=== PATIENT | female | born 1970 | race Caucasian/White ===

== ENCOUNTER 2016-11-11 12:12 | Observation (INO) | payer OTHER ==
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
[2016-11-11 12:48] LABS: COLOR YELLOW; LEUKOCYTE ESTERASE,URINE NEGATIVE (NEGATIVE); NITRITE,URINE NEGATIVE (NEGATIVE)
[2016-11-11 12:52] LABS: BACTERIA 1+ /hpf (NONE SEEN); MUCUS 1+ /lpf (NONE-1+)
[2016-11-11] MEDS ORDERED: ONDANSETRON 4 MG/2 ML VIAL IVP ONE (12:58)
[2016-11-11] MEDS ORDERED: HYDROmorphONE/DILAUDID 1 MG/ML SYR IVP ONE (12:58)
[2016-11-11] MEDS ORDERED: NS 1,000 ML IV ONE ×2 (12:58)
[2016-11-11 13:10] LABS: % IMMATURE GRANULYOCYTES 0.3 % (0.0-1.1); ABSOLUTE IMMATURE GRANULOCYTES 0.03 10^3/uL (0.00-0.10); ADD DIFF? NO; ADD MORPH? NO; ADD SCAN? NO; ATYPICAL LYMPHOCYTE FLAG 0 (0-99); FRAGMENT RBC FLAG 0 (0-99); HEMATOCRIT 40.2 % (38.0-47.0); HEMOGLOBIN 13.7 g/dL (12.6-16.3); LEFT SHIFT FLG 0 (0-99); LIPEMIA HEMOLYSIS FLAG 90 (0-99); MEAN CELL HEMOGLOBIN 28.9 pg (27.9-34.1); MEAN CELL HEMOGLOBIN CONCENTR. 34.1 g/dL (32.4-36.7); MEAN CELL VOLUME 84.8 fL (81.5-99.8); MEAN PLATELET VOLUME 9.7 fL (8.7-11.7); PLATELET CLUMPS FLAG 0 (0-99); PLATELET COUNT 239 10^3/uL (150-400); RED BLOOD CELL COUNT 4.74 10^6/uL (4.18-5.33); RED CELL DISTRIBUTION WIDTH 12.7 % (11.5-15.2)
[2016-11-11 13:27] LABS: ALANINE AMINOTRANSFERASE 33 IU/L (9-52); ALBUMIN 4.1 g/dL (3.5-5.0); ALKALINE PHOSPHATASE 82 IU/L (38-126); ANION GAP 12 mEq/L (8-16); ASPARTATE AMINOTRANSFERASE 17 IU/L (14-46); BILIRUBIN,TOTAL 0.8 mg/dL (0.1-1.4); BILIRUBIN-CONJUGATED 0.3 mg/dL (0.0-0.5); BILIRUBIN-UNCONJUGATED 0.5 mg/dL (0.0-1.1); CALCIUM 9.5 mg/dL (8.5-10.4); CARBON DIOXIDE 21 mEq/l (22-31); CHLORIDE 106 mEq/L (97-110); CREATININE 0.5 mg/dL (0.6-1.0); GLOMERULAR FILTRATION RATE > 60; GLUCOSE 87 mg/dL (70-100); POTASSIUM 4.1 mEq/L (3.5-5.2); SODIUM 139 mEq/L (134-144); TOTAL PROTEIN 7.3 g/dL (6.3-8.2)
[2016-11-11] MEDS ORDERED: IOPAMIDOL (ISOVUE-300) 100 ML BTL IV ONE (13:47)
[2016-11-11] MEDS ORDERED: ERTAPENEM 1 GM in NS 100 ML IV ONE (14:25)
[2016-11-11] MEDS ORDERED: BUPIVACAINE/EPI 0.25% 30 ML SDV ONE (15:36)
[2016-11-11] MEDS ORDERED: SKIN ADHESIVE (DERMABOND) 1 EACH TP ONE (15:36)
--- NOTE | 2016-11-11 16:04 | GHP ---
[f rep st] PREOP HISTORY AND PHYSICAL DATE OF ADMISSION: 11/11/2016 CHIEF COMPLAINT: Abdominal pain. HISTORY OF PRESENT ILLNESS: This is a 46-year-old female who [facility]. The pain began last evening and progressed through the night to this morning where it was initially periumbilical, now right lower quadrant. Fairly excru ciating, associated with nausea, without vomiting. She does endorse chills without fever. The pain she describes is a sharp pain in the right lower quadrant without radiation, 8/10 at worst intensit y. She does endorse having chronic abdominal pain after what appears to be a food poisoning inciden t and this is clearly a different pain. PAST MEDICAL HISTORY: Chronic diarrhea and abdominal pain. PAST SURGICAL HISTORY: Open hysterectomy. CURRENT MEDICATIONS: None. ALLERGIES: None. REVIEW OF SYSTEMS: A full 10-point review was performed and unless explicitly stated above, is othe rwise negative. PHYSICAL EXAMINATION: VITAL SIGNS: Temperature 36.7, blood pressure 129/74, heart rate 83, and she is 96% on room air. GENERAL: She is alert and oriented, in no acute distress. CV: She has a reg ular rate and rhythm. LUNGS: Clear to auscultation bilaterally. ABDOMEN: Soft, nondistended. Te nder to palpation in the right lower quadrant with rebound tenderness. Well-healed Pfannenstiel sca r. EXTREMITIES: Warm and well perfused. LABORATORY: White blood cell count normal at 9; however, she does have a left shift. Hemoglobin an d hematocrit stable. CT scan of the abdomen and pelvis shows acute nonperforated appendicitis. ASSESSMENT AND PLAN: A 46-year-old female with acute, nonperforated appendicitis. I discussed the risks, benefits, and alternatives of surgery with her and she wishes to proceed. We will plan to go to the operating room as time permits for a laparoscopic appendectomy. She will remain n.p.o. and r eceive IV antibiotics. /[id number]/MODL
[2016-11-11] MEDS ORDERED: MIDAZOLAM 2 MG/2 ML VIAL ONE (16:12)
[2016-11-11] MEDS ORDERED: PROPOFOL 200 MG/20 ML VIAL ONE ×2 (16:13)
[2016-11-11] MEDS ORDERED: fentaNYL 100 MCG/2 ML INJ ONE ×2 (16:14→17:38)
[2016-11-11] MEDS ORDERED: ROCURONIUM 50 MG/5 ML VIAL ONE (16:16)
[2016-11-11] MEDS ORDERED: LIDOCAINE 2% 100 MG/5 ML SYR ONE (16:16)
[2016-11-11] MEDS ORDERED: ONDANSETRON 4 MG/2 ML VIAL IVP PRN (17:21)
--- NOTE | 2016-11-11 17:24 | POSTOPPROG ---
Post Op Note Date of Operation: 11/11/16 Surgeon: Gordon Shavre Anesthesiologist: Bonita Anesthesia: GET(General Endotracheal) Pre-op Diagnosis: appendicitis Post-op Diagnosis: same Procedure: Lap appy Findings: acute induration, no perforation Inf/Abcess present in the surg proc area at time of surgery?: No EBL: Minimal Specimen(s): appendix
[2016-11-11] MEDS ORDERED: D5W 1/2 NS W/ 20 KCl/L 1,000 ML IV SCH (17:30)
[2016-11-11] MEDS ORDERED: HYDROmorphONE/DILAUDID 2 MG/ML INJ ONE (18:14)
--- NOTE | 2016-11-11 18:39 | GOP ---
[f rep st] OPERATIVE REPORT DATE OF OPERATION: 11/11/2016 SURGEON: Gordon Shaver MD CARGO AND CONTAINER INSPECTOR: None. ANESTHESIA: General endotracheal per Dr. Mesa. PREOPERATIVE DIAGNOSIS: Appendicitis. POSTOPERATIVE DIAGNOSIS: Appendicitis. PROCEDURE PERFORMED: Laparoscopic appendectomy. FINDINGS: Acutely indurated, non-perforated appendix. SPECIMENS: Appendix. ESTIMATED BLOOD LOSS: 5 cc. DESCRIPTION OF PROCEDURE: The patient was greeted in the preoperative suite. Once again, risks, be nefits, and alternatives were discussed. Consent was signed. She was then brought back to the oper ative suite, placed on the OR table in the supine position. After all anesthesia machines, includin g SCDs, were on and functioning, World Health Organization time-out was performed. General endotrac heal anesthesia was then induced without incident. The patient's abdomen was then widely prepped an d draped in typical sterile fashion. I entered the abdomen using the Veress needle in the left uppe r quadrant and successfully achieved pneumoperitoneum to 15 mmHg CO2, which was well tolerated by th e patient. After this, I entered the abdomen using a 12 mm Visiport in an infraumbilical fashion. Once successfully in the abdomen, I placed two 5 mm Visiports under direct visualization: One in th e suprapubic area, the other in the left lower quadrant, all under direct visualization. Once this was done, I used blunt dissection to identify the appendix by tracing the taeniae inferiorly. It wa s acutely indurated and stuck to the retroperitoneum at that site. I bluntly dissected it off the r etroperitoneum and created a window at the base of the appendix. Through this window, using a singl e fire of the blue Endo BOYD stapler, I successfully amputated the appendix from the cecal base. Aft er this was done, using 2 additional fires of now white load stapler, amputated the appendix from th e mesoappendix and removed it via an EndoCatch bag. Hemostasis was noted to be good at both staple lines. I did irrigate the right lower quadrant with warm normal saline, noting clear effluent in th e suction canister. I then infiltrated all port sites with local anesthetic. I then removed the po rts and evacuated the pneumoperitoneum without issue. My infraumbilical site was then closed with a [id number] 0 Vicryl stitch, noting excellent fascial reapproximation. The patient was then ex tubated in the operative suite and taken to the PACU in satisfactory condition. COUNTS: All counts were reported as correct x2. Please note that I did close all skin with running 4-0 Monocryl over which Dermabond was placed. /[id number]/MODL
[2016-11-11 20:26] VITALS: RESP 16
[2016-11-11] MEDS: OXYCODONE/APAP 5/325 TAB PO PRN (20:47)
[2016-11-11] MEDS: HYDROmorphONE/DILAUDID 1 MG/ML SYR IVP PRN ×2 (21:30→23:29)
[2016-11-12] MEDS: OXYCODONE/APAP 5/325 TAB PO PRN ×5 (00:49→13:20)
[2016-11-12] MEDS: HYDROmorphONE/DILAUDID 1 MG/ML SYR IVP PRN (03:21)
[2016-11-12 08:39] VITALS: BP 112/70; PULSE 54; TEMP 97.7; O2SAT 98
--- NOTE | 2016-11-12 09:46 | GDS ---
[f rep st] DISCHARGE SUMMARY DISCHARGE DIAGNOSIS: Acute appendicitis. HOSPITAL COURSE: The patient was admitted from the Emergency Department, taken to the operating lanre m for uneventful laparoscopic appendectomy. She was then transferred to the floor. Her diet was ad vanced to a regular diet, which was well tolerated on the day of discharge. DISCHARGE MEDICATIONS: New medication: Percocet 5/325 as needed for pain. All home medications re started. DISPOSITION: Home. Follow up 10-14 days with me in the office. /[id number]/MODL
== END 2016-11-12 14:15 | disposition home or self-care (01) ==
LOC: FOB 20:32
PROVIDERS: ADMIT Surgery; ATTEND Surgery
PROC: 0DTJ4ZZ Resection of Appendix, Percutaneous Endoscopic Approach (ICD-10-PCS; principal; 2016-11-11 15:45)
DX: K35.80 Unspecified acute appendicitis (principal)
CPT/HCPCS: 44970; 74177; G0378; 82947-QW; 96365; J1170; J1335; J2001; J2250; J2405; J2704; J3010; Q9967

== ENCOUNTER 2016-11-13 18:26 | Emergency (ER) | payer OTHER ==
[2016-11-13 18:35] VITALS: RESP 18; TEMP 97.9
--- NOTE | 2016-11-13 18:39 | EDPHY ---
HPI/HX/ROS/PE/MDM Narrative: CHIEF COMPLAINT: Facial itching, chest pain, shortness of breath, abdominal pain. HPI: The patient is a 46-year-old female status post appendectomy 2 days ago who presents with facial itching, chest burning, abdominal pain, and shortness of breath. She describes feeling gassy and bloated with worse heartburn than usual. She reports stabbing pain throughout her abdomen. She has had mild diarrhea and nausea. She denies fever, vomiting. She has been taking Percocet for the pain. REVIEW OF SYSTEMS: Aside from elements discussed in the HPI, a comprehensive 10-point review of systems was reviewed and is negative. PMH: Partial hysterectomy, appendectomy. SOCIAL HISTORY: Former smoker. PHYSICAL EXAM: General: Patient is alert, in no acute distress. ENT: Eyes are normal to inspection. ENT inspection normal. Neck: Normal inspection. Full range of motion. Respiratory: No respiratory distress. Breath sounds normal bilaterally. Cardiovascular: Regular rate and rhythm. Strong peripheral pulses. Abdomen: The abdomen is nontender to palpation. There are no peritoneal signs. There are normal bowel sounds. Bruising around well-healed laparoscopic surgical scars. Back: Normal to inspection. No tenderness to palpation. Skin: Normal color. No rash. Warm and dry. Extremities: Normal appearance. Full range of motion. Neuro: Oriented x3. Normal motor function. Normal sensory function. Portions of this note were transcribed by an ED scribe. I personally performed the history, physical exam, and medical decision making; and confirm the accuracy of the information in the transcribed note. ED Course: An IV was established and labs ordered. Chest x-ray obtained. Study: PA and Lateral Chest X-ray Indication: SOB, chest burning. Results: I viewed the images myself on the PACS system. The radiologist interpretation is: Poor inspiration. Otherwise, normal chest x-ray. Study: Abdomen X-ray Indication: SOB, chest burning, recent appendectomy. Results: I viewed the images myself on the PACS system. The radiologist interpretation is: Normal upright abdomen. MDM: This patient is post-op from a laparoscopic appendectomy and has several complaints that seem most likely attributable to normal post-operative symptoms - namely a feeling of abdominal distention with some dyspnea associated, as well as heartburn. She also complains of facial itching associated with taking Percocet. Her exam is very reassuring, she is afebrile, and her WBC as well as other tests are normal. CXR rules out pneumonia, and bowel obstruction, bowel perforation are unlikely. On re-evaluation at 8pm, I explained results to patient and recommended we add additional cardiac labs as well as possible CT of the abdomen to rule out post-op complication. She declines additional testing and will try [id number] medications tonight. We discussed strict return precautions. - Data Points Laboratory Results: Laboratory Results 11/13/16 18:55 11/13/16 18:55 11/13/16 11/13/16 18:55 18:55 WBC 7.38 10^3/uL 10^3/uL (3.80-9.50) RBC 4.11 10^6/uL L 10^6/uL (4.18-5.33) Hgb 12.1 g/dL L g/dL (12.6-16.3) Hct 36.8 % L % (38.0-47.0) MCV 89.5 fL fL (81.5-99.8) MCH 29.4 pg pg (27.9-34.1) MCHC 32.9 g/dL g/dL (32.4-36.7) RDW 13.0 % % (11.5-15.2) Plt Count 236 10^3/uL 10^3/uL (150-400) MPV 9.9 fL fL (8.7-11.7) Neut % (Auto) 58.4 % % (39.3-74.2) Lymph % (Auto) 30.5 % % (15.0-45.0) [place] % (Auto) 7.3 % % (4.5-13.0) Eos % (Auto) 3.1 % % (0.6-7.6) Baso % (Auto) 0.4 % % (0.3-1.7) Nucleat RBC Rel Count 0.0 % % (0.0-0.2) Absolute Neuts (auto) 4.31 10^3/uL 10^3/uL (1.70-6.50) Absolute Lymphs (auto) 2.25 10^3/uL 10^3/uL (1.00-3.00) Absolute Monos (auto) 0.54 10^3/uL 10^3/uL (0.30-0.80) Absolute Eos (auto) 0.23 10^3/uL 10^3/uL (0.03-0.40) Absolute Basos (auto) 0.03 10^3/uL 10^3/uL (0.02-0.10) Absolute Nucleated RBC 0.00 10^3/uL 10^3/uL (0-0.01) Immature Gran % 0.3 % % (0.0-1.1) Immature Gran # 0.02 10^3/uL 10^3/uL (0.00-0.10) Sodium 143 mEq/L mEq/L (134-144) Potassium 4.3 mEq/L mEq/L (3.5-5.2) Chloride 108 mEq/L mEq/L (97-110) Carbon Dioxide 26 mEq/l mEq/l (22-31) Anion Gap 9 mEq/L mEq/L (8-16) BUN 17 mg/dL mg/dL (7-23) Creatinine 0.7 mg/dL mg/dL (0.6-1.0) Estimated GFR > 60 Glucose 112 mg/dL H mg/dL (70-100) Calcium 9.0 mg/dL mg/dL (8.5-10.4) General Time Seen by Provider: 11/13/16 18:37 Initial Vital Signs: Initial Vital Signs Temperature (C) 36.6 C 11/13/16 18:29 Heart Rate 82 11/13/16 18:29 Respiratory Rate 18 11/13/16 18:29 Blood Pressure 133/82 H 11/13/16 18:29 O2 Sat (%) 94 11/13/16 18:29 O2 Delivery Mode Room Air Allergies/Adverse Reactions: No Known Allergies Allergy (Unverified 11/11/16 12:27) Home Medications: Medication Instructions Recorded ALPRAZolam [Xanax 0.25 MG (*)] 0.25 - 0.5 mg PO AD PRN 11/11/16 Cholecalciferol Vit D3 [Vitamin D3 10,000 units PO MOTUWETHFR 11/11/16 2000 units tab (OTC)] Dicyclomine [Bentyl 10 MG (*)] 10 mg PO DAILY PRN 11/11/16 Ibuprofen [Motrin (*)] 800 mg PO DAILY PRN 11/11/16 tiZANidine HCL [Zanaflex 2MG (*)] 2 - 4 mg PO DAILY PRN 11/11/16 oxyCODONE/APAP 5/325 [Percocet 1 - 2 tab PO Q4HRS PRN #30 tab 11/12/16 5/325 (*)] Departure - Departure Disposition: Home, Routine, Self-Care Clinical Impression: Post-op pain, Bloating Dyspnea Qualifiers: Dyspnea type: unspecified Qualified Code(s): R06.00 - Dyspnea, unspecified Condition: Good Instructions: Gas and Bloating (ED), Dyspnea (ED) Additional Instructions: Follow-up with your primary doctor and surgeon within 24-48 hours. Return to the ED for fever, worsening abdominal pain, chest pain, shortness of breath or other concerns. Referrals: Ashli Lopez MD [Primary Care Provider] - As per Instructions Report Scribed for: Dwayne Waterman Report Scribed by: Kai Dawson Date of Report: 11/13/16 Time of Report: 18:48
[2016-11-13 19:08] LABS: % IMMATURE GRANULYOCYTES 0.3 % (0.0-1.1); ABSOLUTE IMMATURE GRANULOCYTES 0.02 10^3/uL (0.00-0.10); ADD DIFF? NO; ADD MORPH? NO; ADD SCAN? NO; ATYPICAL LYMPHOCYTE FLAG 0 (0-99); FRAGMENT RBC FLAG 0 (0-99); HEMATOCRIT 36.8 % (38.0-47.0); HEMOGLOBIN 12.1 g/dL (12.6-16.3); LEFT SHIFT FLG 0 (0-99); LIPEMIA HEMOLYSIS FLAG 80 (0-99); MEAN CELL HEMOGLOBIN 29.4 pg (27.9-34.1); MEAN CELL HEMOGLOBIN CONCENTR. 32.9 g/dL (32.4-36.7); MEAN CELL VOLUME 89.5 fL (81.5-99.8); MEAN PLATELET VOLUME 9.9 fL (8.7-11.7); PLATELET CLUMPS FLAG 20 (0-99); PLATELET COUNT 236 10^3/uL (150-400); RED BLOOD CELL COUNT 4.11 10^6/uL (4.18-5.33)
[2016-11-13 19:19] LABS: ANION GAP 9 mEq/L (8-16); CARBON DIOXIDE 26 mEq/l (22-31); CHLORIDE 108 mEq/L (97-110); CREATININE 0.7 mg/dL (0.6-1.0); GLOMERULAR FILTRATION RATE > 60; GLUCOSE 112 mg/dL (70-100); POTASSIUM 4.3 mEq/L (3.5-5.2); SODIUM 143 mEq/L (134-144)
--- NOTE | 2016-11-13 19:54 | CPEKG ---
Heart Rate: 74 RR Interval: 811 P-R Interval: 140 QRSD Interval: 78 QT Interval: 368 QTC Interval: 409 P [place]: 5 QRS [place]: -6 T Wave [place]: -11 EKG Severity - ABNORMAL ECG - EKG Impression: SINUS RHYTHM EKG Impression: PROBABLE INFERIOR INFARCT, AGE INDETERMINATE EKG Impression: NONSPECIFIC T ABNORMALITIES, ANTERIOR LEADS EKG Impression: Agree with above Electronically Signed By: Ruddy Villafuerte 15-Nov-2016 18:38:46
[2016-11-13 20:28] VITALS: BP 126/84; PULSE 76; O2SAT 92
== END 2016-11-13 20:28 | disposition home or self-care (01) ==
DX: G89.18 Other acute postprocedural pain (principal); R14.0 Abdominal distension (gaseous); R06.00 Dyspnea, unspecified; Z90.49 Acquired absence of other specified parts of digestive tract; Z87.891 Personal history of nicotine dependence

== ENCOUNTER 2016-12-05 16:46 | Emergency (ER) | payer OTHER ==
[2016-12-05 16:58] VITALS: O2SAT 95
--- NOTE | 2016-12-05 17:28 | EDPHY ---
H & P Stated Complaint: appendix removed 11/11 increased abd/back - Personal History LMP (Females 10-55): Hysterectomy Current Tetanus Diphtheria and Acellular Pertussis (TDAP): Yes - Medical/Surgical History Hx Asthma: No Hx Chronic Respiratory Disease: No Hx Diabetes: No Hx Cardiac Disease: No Hx Renal Disease: No Hx Cirrhosis: No Hx Alcoholism: No Hx HIV/AIDS: No Hx Splenectomy or Spleen Trauma: No Other PMH: partial hyst (has L ovary). Appendectomy 11/11/16 - Social History Smoking Status: Former smoker Time Seen by Provider: 12/05/16 17:13 HPI/ROS: CHIEF COMPLAINT: 3 days right upper quadrant and right lower quadrant abdominal pain HISTORY OF PRESENT ILLNESS: 46-year-old female history of H pylori, appendectomy, hysterectomy, left oophorectomy, complaining of 3 days of right upper quadrant, right lower quadrant and right lower back pain with no nausea or vomiting. Continued diarrhea without melena or hematochezia. No rash. No fever or chills. The patient was scheduled to take a trip 2 day and had to get off of airplane secondary to pain. Last oral intake was at 3:00 p.m. consisting of Tamaz[employer] fries PRIMARY CARE PROVIDER:Dr. Lisette Slaughter, Dr. Gordon Shaver REVIEW OF SYSTEMS: A ten point review of systems was performed and is negative with the exception of the items mentioned in the HPI PAST MEDICAL & SURGICAL HISTORY: appendectomy. Hysterectomy. Left oophorectomy. H pylori. SOCIAL HISTORY: nonsmoker PHYSICAL EXAM (Prior to examination, patient consented to physical exam, hands were washed and my usual and customary physical exam procedures followed) 1) GENERAL: Well-developed, well-nourished, alert and oriented. Appears to be in no acute distress. 2) HEAD: Normocephalic, atraumatic 3) HEENT: Pupils equal, round, reactive to light bilaterally. Sclera anicteric. Nasopharynx, oropharynx, clear, no lesions. Ears bilaterally with normal tympanic membranes. 4) NECK: Full range of motion, no meningeal signs. 5) LUNGS: Clear auscultation bilaterally, no wheezes, no rhonchi, no retractions. 6) HEART: Regular rate and rhythm, no murmur, no heave, no gallop. 7) ABDOMEN: No guarding, Tender to palpation right lower and right upper quadrant positive De Oliveira's, positive McBurney's point pain, negative De Oliveira's, negative Rovsing's, negative peritoneal sign, 8) MUSCULOSKELETAL: Moving all extremities, no focal areas of tenderness, no obvious trauma. No peripheral edema or discoloration. 9) BACK: No CVA tenderness, no midline vertebral tenderness, no fluctuance, no step-off, no obvious trauma, no visual or palpable abnormality. 10) SKIN: No rash, no petechiae. 11) Psychiatric: Patient is oriented X 3, there is no agitation. DIFFERENTIAL DIAGNOSIS: My differential diagnosis includes, but is not limited to, acute appendicitis, acute cholecystitis, bowel obstruction, acute pancreatitis, ovarian torsion, ectopic , gastritis and urinary tract infection. The patient understands that this diagnosis is provisional and can never be 100% accurate. This is a partial list of diagnoses considered. These considerations are based on history, physical exam, past history and reassessment. (Juvenal Chan) Constitutional: Initial Vital Signs Temperature (C) 36.6 C 12/05/16 16:54 Heart Rate 84 12/05/16 16:54 Respiratory Rate 16 12/05/16 16:54 Blood Pressure 115/94 H 12/05/16 16:54 O2 Sat (%) 95 12/05/16 16:54 O2 Delivery Mode Room Air Allergies/Adverse Reactions: No Known Allergies Allergy (Unverified 11/11/16 12:27) Home Medications: Medication Instructions Recorded ALPRAZolam [Xanax 0.25 MG (*)] 0.25 - 0.5 mg PO AD PRN 11/11/16 Cholecalciferol Vit D3 [Vitamin D3 10,000 units PO MOTUWETHFR 11/11/16 2000 units tab (OTC)] Dicyclomine [Bentyl 10 MG (*)] 10 mg PO DAILY PRN 11/11/16 Ibuprofen [Motrin (*)] 800 mg PO DAILY PRN 11/11/16 tiZANidine HCL [Zanaflex 2MG (*)] 2 - 4 mg PO DAILY PRN 11/11/16 oxyCODONE/APAP 5/325 [Percocet 1 - 2 tab PO Q4HRS PRN #30 tab 11/12/16 5/325 (*)] Amoxicillin 12/05/16 Hydrocodone/APAP 5/325 [[place] 1 tab PO Q6 PRN #10 tab 12/05/16 5/325 (RX)] Medical Decision Making - Diagnostics Imaging Results: Imaging Impressions Abdomen Ultrasound 12/05/16 17:26 Impression: 1. No evidence of gallstones. 2. Mild hepatic steatosis. Cyst left lobe liver lateral segment was not imaged on today's exam. 3. Incidental 12 mm cyst upper pole as well as lower pole right kidney. Pelvic/Renal Ultrasound 12/05/16 17:26 Impression: 1. Previous hysterectomy and left oophorectomy. 2. Complex right ovary with heterogeneous slightly increased echogenicity component centrally that could represent hemorrhagic cyst. A mass is felt to be less likely. Reviewing the prior recent CT study revealed cysts associated with the right ovary but no mass. Findings were discussed by telephone with Dwayne Chan PA-C at 1917 hrs. Images reviewed by myself (Juvenal Chan) ED Course/Re-evaluation: Patient's re-evaluated serial exams was recently at 7:50 p.m.. Her pain is controlled. Discussed her imaging results. She has an old right ovarian hemorrhagic cyst. I think that acute surgical abdominal pathology such as bowel obstruction less than likely. She has prior history of appendectomy. Think the patient can be discharged with analgesia and follow-up with OBGYN. Usual customary abdominal precautions instructions provided. (Juvenal Chan) I did not see this patient while she was in the emergency department. However her care was discussed with the PA while the patient was in the department. I agree with treatment plan and management (Ruddy Siu) - Data Points Laboratory Results: Laboratory Results 12/05/16 18:05 12/05/16 18:05 12/05/16 12/05/16 12/05/16 18:05 18:05 18:05 WBC 7.60 10^3/uL 10^3/uL (3.80-9.50) RBC 4.74 10^6/uL 10^6/uL (4.18-5.33) Hgb 13.9 g/dL g/dL (12.6-16.3) Hct 40.9 % % (38.0-47.0) MCV 86.3 fL fL (81.5-99.8) MCH 29.3 pg pg (27.9-34.1) MCHC 34.0 g/dL g/dL (32.4-36.7) RDW 12.6 % % (11.5-15.2) Plt Count 259 10^3/uL 10^3/uL (150-400) MPV 10.1 fL fL (8.7-11.7) Neut % (Auto) 64.3 % % (39.3-74.2) Lymph % (Auto) 25.5 % % (15.0-45.0) [place] % (Auto) 6.2 % % (4.5-13.0) Eos % (Auto) 3.0 % % (0.6-7.6) Baso % (Auto) 0.7 % % (0.3-1.7) Nucleat RBC Rel Count 0.0 % % (0.0-0.2) Absolute Neuts (auto) 4.89 10^3/uL 10^3/uL (1.70-6.50) Absolute Lymphs (auto) 1.94 10^3/uL 10^3/uL (1.00-3.00) Absolute Monos (auto) 0.47 10^3/uL 10^3/uL (0.30-0.80) Absolute Eos (auto) 0.23 10^3/uL 10^3/uL (0.03-0.40) Absolute Basos (auto) 0.05 10^3/uL 10^3/uL (0.02-0.10) Absolute Nucleated RBC 0.00 10^3/uL 10^3/uL (0-0.01) Immature Gran % 0.3 % % (0.0-1.1) Immature Gran # 0.02 10^3/uL 10^3/uL (0.00-0.10) Sodium 139 mEq/L mEq/L (134-144) Potassium 4.2 mEq/L mEq/L (3.5-5.2) Chloride 107 mEq/L mEq/L (97-110) Carbon Dioxide 24 mEq/l mEq/l (22-31) Anion Gap 8 mEq/L mEq/L (8-16) BUN 10 mg/dL mg/dL (7-23) Creatinine 0.6 mg/dL mg/dL (0.6-1.0) Estimated GFR > 60 Glucose 106 mg/dL H mg/dL (70-100) Calcium 9.6 mg/dL mg/dL (8.5-10.4) Total Bilirubin 0.6 mg/dL mg/dL (0.1-1.4) Conjugated Bilirubin 0.4 mg/dL mg/dL (0.0-0.5) Unconjugated Bilirubin 0.2 mg/dL mg/dL (0.0-1.1) AST 23 IU/L IU/L (14-46) ALT 33 IU/L IU/L (9-52) Alkaline Phosphatase 74 IU/L IU/L (38-126) Total Protein 7.1 g/dL g/dL (6.3-8.2) Albumin 4.4 g/dL g/dL (3.5-5.0) Lipase 66.0 IU/L IU/L (23-300) Beta HCG, Qual NEGATIVE Urine Color Urine Appearance Urine pH Ur Specific [place] Urine Protein Urine Ketones Urine Blood Urine Nitrate Urine Bilirubin Urine Urobilinogen Ur Leukocyte Esterase Urine RBC Urine WBC Ur Epithelial Cells Urine Bacteria Urine Mucus Urine Glucose 12/05/16 16:50 WBC RBC Hgb Hct MCV MCH MCHC RDW Plt Count MPV Neut % (Auto) Lymph % (Auto) [place] % (Auto) Eos % (Auto) Baso % (Auto) Nucleat RBC Rel Count Absolute Neuts (auto) Absolute Lymphs (auto) Absolute Monos (auto) Absolute Eos (auto) Absolute Basos (auto) Absolute Nucleated RBC Immature Gran % Immature Gran # Sodium Potassium Chloride Carbon Dioxide Anion Gap BUN Creatinine Estimated GFR Glucose Calcium Total Bilirubin Conjugated Bilirubin Unconjugated Bilirubin AST ALT Alkaline Phosphatase Total Protein Albumin Lipase Beta HCG, Qual Urine Color PALE YELLOW Urine Appearance MODERATELY TURBID Urine pH 6.0 (5.0-7.5) Ur Specific [place] 1.003 (1.002-1.030) Urine Protein NEGATIVE (NEGATIVE) Urine Ketones NEGATIVE (NEGATIVE) Urine Blood NEGATIVE (NEGATIVE) Urine Nitrate NEGATIVE (NEGATIVE) Urine Bilirubin NEGATIVE (NEGATIVE) Urine Urobilinogen NEGATIVE EU EU (0.2-1.0) Ur Leukocyte Esterase NEGATIVE (NEGATIVE) Urine RBC 1-3 /hpf /hpf (0-3) Urine WBC 1-3 /hpf /hpf (0-3) Ur Epithelial Cells TRACE /lpf /lpf (NONE-1+) Urine Bacteria TRACE /hpf H /hpf (NONE SEEN) Urine Mucus TRACE /lpf /lpf (NONE-1+) Urine Glucose NEGATIVE (NEGATIVE) Medications Given: Discontinued Medications Hydrocodone Bitart/Acetaminophen ([place] 5/325mg Prepack#6) 1 btl TAKEHOME EDNOW ONE Stop: 12/05/16 20:03 Last Admin: 12/05/16 20:35 Dose: 1 btl Hydromorphone HCl (Dilaudid) 1 mg IVP EDNOW ONE Stop: 12/05/16 19:25 Last Admin: 12/05/16 19:37 Dose: 1 mg Ketorolac Tromethamine (Toradol) 30 mg IVP EDNOW ONE Stop: 12/05/16 18:50 Last Admin: 12/05/16 18:55 Dose: 30 mg Departure - Departure Disposition: Home, Routine, Self-Care Clinical Impression: Ovarian cyst Qualifiers: Laterality: right Qualified Code(s): N83.201 - Unspecified ovarian cyst, right side Condition: Good Instructions: Hydrocodone/Acetaminophen (By mouth), Ovarian Cyst (ED) Additional Instructions: Return to the ER if you develop new or worsening abdominal pain, fever, chills or any other symptoms that concern you. Referrals: Bonnie Rodrigues DO [Doctor of Osteopathy] - As per Instructions Ashli Lopez MD [Primary Care Provider] - 1-2 days without fail (Dr. Bonnie Rodrigues is in OBGYN) Prescriptions: Hydrocodone/APAP 5/325 [[place] 5/325 (RX)] 1 tab PO Q6 PRN #10 tab PRN Reason: Pain, Severe
[2016-12-05 17:44] LABS: COLOR PALE YELLOW; LEUKOCYTE ESTERASE,URINE NEGATIVE (NEGATIVE); NITRITE,URINE NEGATIVE (NEGATIVE)
[2016-12-05 17:56] LABS: BACTERIA TRACE /hpf (NONE SEEN); MUCUS TRACE /lpf (NONE-1+)
[2016-12-05 18:08] LABS: % IMMATURE GRANULYOCYTES 0.3 % (0.0-1.1); ABSOLUTE IMMATURE GRANULOCYTES 0.02 10^3/uL (0.00-0.10); ADD DIFF? NO; ADD MORPH? NO; ADD SCAN? NO; ATYPICAL LYMPHOCYTE FLAG 0 (0-99); FRAGMENT RBC FLAG 0 (0-99); HEMATOCRIT 40.9 % (38.0-47.0); HEMOGLOBIN 13.9 g/dL (12.6-16.3); LEFT SHIFT FLG 0 (0-99); LIPEMIA HEMOLYSIS FLAG 90 (0-99); MEAN CELL HEMOGLOBIN 29.3 pg (27.9-34.1); MEAN CELL VOLUME 86.3 fL (81.5-99.8); MEAN PLATELET VOLUME 10.1 fL (8.7-11.7); PLATELET CLUMPS FLAG 0 (0-99); PLATELET COUNT 259 10^3/uL (150-400); RED BLOOD CELL COUNT 4.74 10^6/uL (4.18-5.33); RED CELL DISTRIBUTION WIDTH 12.6 % (11.5-15.2)
[2016-12-05 18:35] LABS: ALANINE AMINOTRANSFERASE 33 IU/L (9-52); ALBUMIN 4.4 g/dL (3.5-5.0); ALKALINE PHOSPHATASE 74 IU/L (38-126); ANION GAP 8 mEq/L (8-16); ASPARTATE AMINOTRANSFERASE 23 IU/L (14-46); BILIRUBIN,TOTAL 0.6 mg/dL (0.1-1.4); BILIRUBIN-CONJUGATED 0.4 mg/dL (0.0-0.5); BILIRUBIN-UNCONJUGATED 0.2 mg/dL (0.0-1.1); CALCIUM 9.6 mg/dL (8.5-10.4); CARBON DIOXIDE 24 mEq/l (22-31); CHLORIDE 107 mEq/L (97-110); CREATININE 0.6 mg/dL (0.6-1.0); GLOMERULAR FILTRATION RATE > 60; GLUCOSE 106 mg/dL (70-100); POTASSIUM 4.2 mEq/L (3.5-5.2); SODIUM 139 mEq/L (134-144); TOTAL PROTEIN 7.1 g/dL (6.3-8.2)
[2016-12-05] MEDS ORDERED: KETOROLAC 30 MG/1 ML SDV IVP ONE (18:49)
[2016-12-05] MEDS ORDERED: KETOROLAC 30 MG/1 ML SDV ONE (18:49)
[2016-12-05] MEDS ORDERED: HYDROmorphONE/DILAUDID 1 MG/ML SYR IVP ONE (19:24)
[2016-12-05 19:38] VITALS: BP 125/82; PULSE 75; RESP 12
[2016-12-05] MEDS ORDERED: HYDROCOD/APAP 5/325 PREPACK#6 BTL TAKEHOME ONE (20:02)
[2016-12-05 20:35] VITALS: TEMP 98.1
== END 2016-12-05 20:35 | disposition home or self-care (01) ==
DX: N83.201 Unspecified ovarian cyst, right side (principal); Z87.891 Personal history of nicotine dependence; Z90.710 Acquired absence of both cervix and uterus
CPT/HCPCS: 96374; J1170; J1885

== ENCOUNTER 2017-02-07 08:51 | Day surgery (SDC) | payer OTHER ==
[2017-02-07] MEDS ORDERED: SURGIFLO MATRIX KIT WITH THROMBIN TP ONE (09:37)
[2017-02-07] MEDS ORDERED: SILVER NITRATE APPLICATOR 1 APPL TP ONE (09:37)
[2017-02-07] MEDS ORDERED: BUPIVACAINE 0.25% 30 ML SDV ONE (09:37)
--- NOTE | 2017-02-07 09:40 | PDHPUP ---
History & Physical Update H&P update statement: This history and physical update is based on an assessment of the patient which was completed after admission or registration (within 24 hours), but prior to the surgery/procedure. H&P update: H&P reviewed & patient examined (Proceed with planned laparoscopic RSO)
[2017-02-07] MEDS ORDERED: LR 1,000 ML IV ONE (09:42)
[2017-02-07] MEDS ORDERED: LIDOCAINE 1% 2 ML INJ ID PRN (09:42)
[2017-02-07 09:49] VITALS: PULSE 64
--- NOTE | 2017-02-07 10:06 | PDANEPAE ---
ANE History of Present Illness 46 f with pelvic pain ANE Past Medical History - Cardiovascular History Hx Hypertension: No Hx Arrhythmias: No Hx Chest Pain: No Hx Coronary Artery / Peripheral Vascular Disease: No Hx CHF / Valvular Disease: No Hx Palpitations: No - Pulmonary History Hx COPD: No Hx Asthma/Reactive Airway Disease: No Hx Recent Upper Respiratory Infection: No Hx Oxygen in Use at Home: No - Neurologic History Hx Cerebrovascular Accident: No Hx Seizures: No Hx Dementia: No - Endocrine History Hx Diabetes: No - Renal History Hx Renal Disorders: No - Liver History Hx Hepatic Disorders: No - Neurological & Psychiatric Hx Hx Neurological and Psychiatric Disorders: No - Cancer History Hx Cancer: No - Congenital Disorder History Hx Congenital Disorders: No - GI History Hx Gastrointestinal Disorders: Yes - Chronic Pain History Chronic Pain: No ANE Review of Systems Review of systems is: negative - Exercise capacity METS (RN): 4 METS ANE Patient History - Allergies Allergies/Adverse Reactions: No Known Allergies Allergy (Verified 01/18/17 12:04) - Home Medications Home medications: home medication list seen and reviewed Home Medications: ALPRAZolam [Xanax 0.25 MG (*)] 11/11/16 [Last Taken Unknown] Cholecalciferol Vit D3 [Vitamin D3 2000 units tab (OTC)] 11/11/16 [Last Taken 1 Week Ago] Advil 01/18/17 [Last Taken Unknown] Dhea 01/18/17 [Last Taken Unknown] Herbals/Supplements -Info Only 01/18/17 [Last Taken Unknown] TRAMADOL HCL 01/18/17 [Last Taken Unknown] oxyCODONE/APAP 5/325 [Percocet 5/325 (*)] 01/18/17 [Last Taken Unknown] - NPO status NPO Since - Liquids (Date): 02/06/17 NPO Since - Liquids (Time): 20:00 NPO Since - Solids (Date): 02/06/17 NPO Since - Solids (Time): 20:00 - Anes Hx Anes Hx: no prior problems - Smoking Hx Smoking Status: Former smoker - Alcohol Use Alcohol Use: Occasionally - Family Anes Hx Family Hx Anesthesia Complications: NONE ANE Labs/Vital Signs - Vital Signs Blood Pressure: 124/73 Heart Rate: 64 Respiratory Rate: 16 O2 Sat (%): 96 Height: 161.29 cm Weight: 77.564 kg ANE Physical Exam - Airway Neck exam: FROM Mallampati Score: Class 2 Mouth exam: normal dental/mouth exam, small mouth opening - Pulmonary Pulmonary: no respiratory distress - Cardiovascular Cardiovascular: no murmur, rub, or gallop - ASA Status ASA Status: II ANE Anesthesia Plan Anesthesia Plan: general endotracheal anesthesia
[2017-02-07] MEDS ORDERED: MIDAZOLAM 2 MG/2 ML VIAL ONE (10:15)
[2017-02-07] MEDS ORDERED: fentaNYL 100 MCG/2 ML INJ ONE ×4 (10:17→12:12)
[2017-02-07] MEDS ORDERED: PROPOFOL 200 MG/20 ML VIAL ONE (10:43)
[2017-02-07] MEDS ORDERED: MIDAZOLAM 2 MG/2 ML VIAL IVP ONE (11:08)
[2017-02-07] MEDS ORDERED: OXYCODONE/APAP 5/325 TAB PO PRN (11:36)
[2017-02-07] MEDS ORDERED: PROMETHAZINE HCL 25 MG/ML INJ IVP PRN (11:36)
[2017-02-07] MEDS ORDERED: ACETAMINOPHEN 500 MG TAB PO PRN (11:36)
[2017-02-07] MEDS ORDERED: HYDROmorphONE/DILAUDID 1 MG/ML SYR IVP PRN (11:36)
[2017-02-07] MEDS ORDERED: ONDANSETRON 4 MG/2 ML VIAL IVP PRN (11:36)
[2017-02-07] MEDS ORDERED: NALOXONE HCL 0.4 MG/ML INJ IVP PRN (11:36)
[2017-02-07] MEDS ORDERED: ALBUTEROL 3 ML DEYVIAL IH PRN (11:36)
--- NOTE | 2017-02-07 11:43 | POSTANESTH ---
Post Anesthetic Evaluation Cardiovascular Status: Normal, Stable Respiratory Status: Normal, Stable Level of Consciousness/Mental Status: Can Participate in Eval Pain Control: Adequate, Prn Tx Ordered Nausea/Vomiting Control: Adequate, Prn Tx Ordered Complications Possibly Related to Anesthesia: None Noted
[2017-02-07] MEDS: fentaNYL 100 MCG/2 ML INJ IVP PRN ×4 (11:53→12:28)
[2017-02-07] MEDS ORDERED: oxyCODONE IR 5 MG TAB PO PRN (11:54)
[2017-02-07] MEDS ORDERED: OXYCODONE/APAP 5/325 TAB ONE (12:48)
[2017-02-07 12:58] VITALS: RESP 19; O2SAT 94
[2017-02-07 13:22] VITALS: TEMP 98.1
[2017-02-07 13:48] VITALS: BP 121/68
--- NOTE | 2017-02-07 15:07 | GOP ---
[f rep st] OPERATIVE REPORT DATE OF OPERATION: 02/07/2017 SURGEON: Mercedes Allen MD MANAGER SOCIAL WORK: Char Noel MD. ANESTHESIA: Dr. Witt PREOPERATIVE DIAGNOSIS: Right ovarian cyst, pelvic pain. POSTOPERATIVE DIAGNOSIS: Right ovarian cyst, pelvic pain. PROCEDURE PERFORMED: Laparoscopic right salpingo-oophorectomy. FINDINGS: Mild adhesive disease in the lower pelvis. Normal right ovary with 2 small areas of likely hemorrhagic cysts. Otherwise, normal intraabdominal findings with history of total abdominal hysterectomy and removal of left tube and ovary. ESTIMATED BLOOD LOSS: 10 mL. INDICATIONS: Patient is a 46-year-old with a history of prior total abdominal hysterectomy and left salpingo-oophorectomy. She developed new-onset right lower quadrant pain and imaging was done demonstrating a cyst on her ovary. She desired to proceed with removal of this ovary. We reviewed all the risks and benefits, including the side effect of surgical menopause and she strongly desired to proceed. DESCRIPTION OF PROCEDURE: The patient was brought to the operating room and a time-out was performed. General anesthetic with ET tube was initiated without complication. She was prepped and draped in the normal sterile fashion in dorsal lithotomy with [place] stirrups. Sparks catheter was placed. A final time- out was performed. The umbilicus was injected with 5 mL of 0.25% Marcaine. A 10 mm vertical incision was made in the area of the prior incision. The tissue was dissected down to the level of the fascia which was grasped with 2 Kochers and then tented up and then incised using a 15 blade scalpel. The underlying peritoneum was bluntly entered and a 10 mm Murtaza port was placed. The abdomen was insufflated to 15 mmHg. The findings were as noted above. Two additional 5 ports were placed under direct visualization in the right and lower quadrants after injection of Marcaine. A 5 mm camera was placed through the left lateral port and it was confirmed that the initial port placement did not involve any adhesions and had not caused any injury. The right ovary was grasped. The ureter was identified. The PK gyrus was used to cauterize and transect the IP ligament. The ovary and tube were then peeled off the peritoneum using blunt dissection and cautery and completely freed. A 10 mm EndoCatch bag was inserted and the specimen was placed in the bag and removed intact. Hemostasis was noted at this time. All instruments were removed. The gas was removed from the abdomen. The fascia of the 10 mm port was closed with 0 Vicryl. All skin incisions were closed with 4-0 Monocryl and Dermabond was placed. The patient was awakened in good condition and brought to the recovery room. ANESTHETIC: General with ET tube. FLUIDS: 600 mL. URINE: 20 mL. COMPLICATIONS: None. OUTCOME: Stable to PACU. /[id number]/MODL MTDD
== END 2017-02-07 13:59 | disposition home or self-care (01) ==
LOC: FSGY 08:51
PROVIDERS: ATTEND Obstetrics & Gynecology
PROC: 0UT04ZZ Resection of Right Ovary, Percutaneous Endoscopic Approach (ICD-10-PCS; principal; 2017-02-07 10:15)
PROC: 0UT54ZZ Resection of Right Fallopian Tube, Percutaneous Endoscopic Approach (ICD-10-PCS; principal; 2017-02-07 10:15)
DX: N83.11 Corpus luteum cyst of right ovary (principal); R10.31 Right lower quadrant pain; Z87.891 Personal history of nicotine dependence; Z80.41 Family history of malignant neoplasm of ovary; Z90.721 Acquired absence of ovaries, unilateral; Z90.710 Acquired absence of both cervix and uterus
CPT/HCPCS: J2250; J2704; J3010